=== PATIENT | male | born 1940 | race Caucasian/White ===

== ENCOUNTER 2017-01-04 08:43 | Inpatient (IN) ==
[2017-01-04] MEDS ORDERED: Acetaminophen 325 MG TABLET PO PRN (10:57)
[2017-01-04] MEDS ORDERED: Naloxone 0.4 MG/ML INJ IVP PRN (10:57)
--- NOTE | 2017-01-04 11:19 | Internal Med History&Physical ---
<Kiana Holder M - Last Filed: 01/04/17 11:30> Date of Encounter: 01/04/17 Time of Encounter: 11:07 Assessment and Plan (1) Atrial fibrillation with RVR Current visit: Yes Status: Acute Patient had episode of afib with RVR while at the [facility]. They started him on cardizem drip and transferred to [place]. On arrival, patient's heart rate was well controlled on 2.5 of cardizem drip. start 30mg Cardizem PO TID Stop Cardizem drip 1 hour after first dose of PO cardizem Continue home dose of metoprolol 25mg BID Continue Eliquis for anticoagulation. Continuous cardiac specialist. echocardiogram. 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 He reports his vertigo became significantly worse after taking meclizine earlier this week, which is what prompted his evaluation and stay at the [facility]. He is now back to his baseline per his report. Avoid Meclizine. Continue statin, aspirin. (4) Anticoagulated Current visit: Yes Status: Chronic Patient takes Eliquis for atrial fibrillation. No signs or symptoms of bleeding. Continue home dose of eliquis. (5) Hypertension Current visit: Yes Status: Chronic Blood pressure controlled since arrival. Continue home dose of losartan. Qualifiers: Hypertension type: essential hypertension Qualified Code(s): I10 - Essential (primary) hypertension (6) DVT prophylaxis Current visit: Yes Status: Acute anti-embolic stockings Patient on eliquis for afib, additional pharmacologic prophylaxis is not indicated. Internal Medicine - H&P: HPI Chief complaint: afib Admitted From: Emergency Dept Plans for Post Hospital Care: Home History of present illness: Mr. Hernandez is a 76 year old male with recent acute CVA (November) with residual vertigo, recently diagnosed afib, hypertension, BPH who was transferred from the [place] for afib with RVR. Patient reports he had been in the [place] hospital since Friday for an episode of worsening vertigo after taking meclizine. He states today, he was up in the bathroom, when someone came in and told him his HR was in the 140s and he would be going to [place]. He reports he does have occasional palpitations and shortness of breath, but nothing out of the ordinary from his baseline. He denies any chest pain, swelling, fevers, chills, nausea, vomiting , abdominal pain, diarrhea. [facility] and were grossly normal. TSH was checked during his stay and was within normal limits. On exam, patient alert and oriented, in no acute distress. Heart had irreglar rhythm with rate in the 70s-80s on 2.5 Cardizem drip. Lungs were clear bilaterally to auscultation. No peripheral edema. Past Med Surg Social Fam HX - Past Medical History Medical history: atrial fibrillation, CVA, hyperlipidemia, hypertension, other Psychiatric history: no psych history - Past Surgical History Surgical History: no surgical history - Social History Smoking Status: Former smoker Smokeless Tobacco Status: No Alcohol use: none Drug use: none - Family History Mother History Unknown: Yes Adopted: No Living Status: Internal Medicine - H&P: Meds Alfuzosin HCl [Uroxatral] 10 mg PO HS #0 12/05/16 [History] Apixaban [Eliquis] 5 mg PO BID 12/05/16 [History] Finasteride [Proscar] 5 mg PO DAILY 12/05/16 [History] Metoprolol [Lopressor] 25 mg PO BID 12/05/16 [History] Omeprazole [PriLOSEC] 20 mg PO BIDAC 12/05/16 [History] Psyllium [Metamucil Fiber Singles Packet] 1 packet PO HS 12/05/16 [History] Acetaminophen [Tylenol] 650 mg PO Q6HR PRN tab 12/13/16 [Rx] Atorvastatin [Lipitor] 40 mg PO HS #30 tab 12/13/16 [Rx] Losartan Potassium [Cozaar] 50 mg PO BID #30 tab 12/13/16 [Rx] amLODIPine [Norvasc] 5 mg PO DAILY #30 tablet 12/13/16 [Rx] 3 Allergy/AdvReac Type Severity Reaction Status Date / Time No Known Allergies Allergy Verified 12/05/16 16:42 All Systems PM: A 10-system review of systems was performed and is negative for pertinent findings except as documented above in the HPI. - Constitutional Constitutional: no chills, no fever(s), no night sweats - EENT Eyes: no change in vision, no discharge, no pain, no photophobia Ears: no ear discharge, no ear pain, no tinnitus Nose, mouth and throat: no dysphagia, no nasal discharge, no neck pain, no sore throat - Cardiovascular Cardiovascular ROS IM: dyspnea on exertion (occasional), palpitations ( occasional), no chest pain, no diaphoresis, no dyspnea, no lightheadedness, no syncope - Respiratory Respiratory: dyspnea on exertion, no cough, no dyspnea, no wheezing, no excessive phlegm production - Gastrointestinal Gastrointestinal: no abdominal pain, no diarrhea, no hematemesis, no hematochezia, no melena, no nausea, no vomiting - Musculoskeletal Musculoskeletal ROS IM: no numbness, no tingling - Integumentary Integumentary IM: no rash, no unusual bruising - Neurological Neurological ROS: dizziness (residual from CVA), no confusion, no convulsions, no focal weakness, no numbness, no tingling, no tremor(s) - Hematologic/Lymphatic Hematologic/Lymphatic: no easy bruising - Constitutional Vitals: Temp Pulse Resp BP Pulse Ox 97.6 F 80 16 133/94 99 01/04/17 09:54 01/04/17 09:54 01/04/17 09:54 01/04/17 09:54 01/04/17 09:54 General appearance: Present: A&O X 3, pleasant, no acute distress - Head Head exam: Present: atraumatic, normocephalic - Eye Eye exam: Present: PERRL, conjuntiva pink, sclera anicteric Pupils: Present: PERRL - Neck Neck exam general surgery: Present: supple, trachea midline. Absent: lymphadenopathy - Respiratory Respiratory exam: Present: CTAB. Absent: accessory muscle use, rales, rhonchi, wheezes - Cardiovascular Cardiovascular exam: Present: irregular rhythm, +S1, +S2. Absent: diastolic murmur, gallop, rubs, systolic murmur - GI/Abdominal GI/Abdominal exam: Present: normal bowel sounds, soft, no peritoneal signs. Absent: distended, tenderness - Extremities Exam Extremities exam: Present: warm, radial pulses palpable and symmetrical. Absent : calf tenderness, cyanotic, pedal edema - Neurological Exam Neurological exam: Present: CN II-XII intact, oriented X3, no focal deficits. Absent: facial droop, speech deficit - Skin Skin exam: Present: dry, intact Internal Med - H&P Results - Labs CBC & Chem 7: 01/04/17 11:13 Labs: Labs from [place] hospital: 12/30/16: Hgb 16.9 Hct 49.6 WBC 8.5 Plt 212 01/02/17: Na 143 K 3.8 Cl 108 CO2 27 BUN 8 Cr 0.87 GLU 72 <Annabelle Malloy - Last Filed: 01/04/17 13:27> Date of Encounter: 01/04/17 Time of Encounter: 10:30 Internal Medicine - H&P: HPI History of present illness: Mr. Hernandez is a 76 year old male All Systems PM: A 10-system review of systems was performed and is negative for pertinent findings except as documented above in the HPI. - Constitutional Vitals: Temp Pulse Resp BP Pulse Ox 97.6 F 80 16 133/94 99 01/04/17 09:54 01/04/17 09:54 01/04/17 09:54 01/04/17 09:54 01/04/17 09:54 Internal Med - H&P Results - Labs CBC & Chem 7: 01/04/17 11:13 01/04/17 11:13 Labs: Short CBC 01/04/17 Range/Units 11:13 WBC 9.5 (4.3-11.1) K/mcL Hgb 15.6 (12.9-16.9) g/dL Hct 45.7 (37.5-50.1) % Plt Count 187 (140-400) K/mcL Neutrophils # 7.4 (1.6-8.9) K/mcL BMP 01/04/17 11:13 Sodium 138 Potassium 4.1 Chloride 106 Carbon Dioxide 24 BUN 9 Creatinine 0.97 Glucose 103 H Calcium 9.1 - Attending Attestation Pt independently seen and examined. Transferred from [facility] for Afib with RVR, was started on cardizem gtt prior to transfer. Upon evaluation, he was noted to have rate controlled and was started on Cardizem 30mg PO q8h and is to be titrated off the drip. Pt is to continue home dose of Eliquis. Case discussed with CORIE Holder, I agree with her documented findings, assessment, and plan.
[2017-01-04 11:21] LABS: Basophils % 0.1 %; Eosinophils # 0.1 K/mcL (0.0-0.6); Eosinophils % 1.2 %; Hematocrit 45.7 % (37.5-50.1); Hemoglobin 15.6 g/dL (12.9-16.9); Immature Granulocytes % 0.3 % (0-4); Lymphocytes # 1.3 K/mcL (0.6-4.6); Lymphocytes % 14.1 %; Mean Corpuscular HGB Conc 34.1 g/dL (31.6-35.5); Mean Corpuscular Hemoglobin 28.4 pg (28.0-33.3); Mean Corpuscular Volume 83.2 fL (83.0-100.0); Monocytes # 0.6 K/mcL (0.0-1.3); Monocytes % 6.6 %; Neutrophils # 7.4 K/mcL (1.6-8.9); Platelet Count 187 K/mcL (140-400); Red Blood Count 5.49 M/mcL (4.19-5.50); Red Cell Distribution Width 14.6 % (11.5-14.5); Segmented Neutrophils % 77.7 %
[2017-01-04 11:33] LABS: BUN/Creatinine Ratio 9 (6-26); Blood Urea Nitrogen 9 mg/dL (8-26); Calcium 9.1 mg/dL (8.6-10.8); Carbon Dioxide 24 mEq/L (19-29); Chloride 106 mEq/L (98-109); Glucose 103 mg/dL (70-99); Osmolality,Calculated 285 (280-300); Potassium 4.1 mEq/L (3.5-4.5); Sodium 138 mEq/L (136-145); eGFR For African Americans > 60 (> 60); eGFR For Non-African Americans > 60 (> 60)
[2017-01-04] MEDS: APIXABAN 5 MG TABLET PO SCH (21:46)
[2017-01-04] MEDS: Psyllium 1 PACKET POWD.PACK PO SCH (21:48)
[2017-01-05 05:31] LABS: Basophils % 0.1 %; Eosinophils # 0.2 K/mcL (0.0-0.6); Eosinophils % 3.3 %; Hematocrit 43.9 % (37.5-50.1); Immature Granulocytes % 0.3 % (0-4); Lymphocytes # 1.9 K/mcL (0.6-4.6); Lymphocytes % 26.7 %; Mean Corpuscular HGB Conc 34.2 g/dL (31.6-35.5); Mean Corpuscular Hemoglobin 28.7 pg (28.0-33.3); Mean Corpuscular Volume 84.1 fL (83.0-100.0); Mean Platelet Volume 10.5 fL (9.4-12.4); Monocytes # 0.7 K/mcL (0.0-1.3); Monocytes % 9.5 %; Neutrophils # 4.3 K/mcL (1.6-8.9); Platelet Count 190 K/mcL (140-400); Red Blood Count 5.22 M/mcL (4.19-5.50); Red Cell Distribution Width 14.7 % (11.5-14.5); Segmented Neutrophils % 60.1 %
[2017-01-05 05:43] LABS: BUN/Creatinine Ratio 10 (6-26); Blood Urea Nitrogen 11 mg/dL (8-26); Calcium 8.9 mg/dL (8.6-10.8); Carbon Dioxide 27 mEq/L (19-29); Chloride 106 mEq/L (98-109); Glucose 96 mg/dL (70-99); Osmolality,Calculated 291 (280-300); Potassium 3.6 mEq/L (3.5-4.5); Sodium 141 mEq/L (136-145); eGFR For African Americans > 60 (> 60); eGFR For Non-African Americans > 60 (> 60)
[2017-01-05] MEDS ORDERED: Diltiazem CD (24hr) 120 MG CAPSULE PO SCH (09:00)
--- NOTE | 2017-01-05 09:04 | Internal Med Progress Note ---
<Pravin Huerta - Last Filed: 01/05/17 11:25> Date of Encounter: 01/05/17 Time of Encounter: 09:02 - Assessment and plan (1) Atrial fibrillation Current Visit: No Status: Acute Assessment and plan: Patient was transferred with a heart rate in the 130s. He reported symptoms of dizziness. Denied chest pains or palpitations. Patient was started on Cardizem drip and is very responded appropriately. Patient has been transitioned to by mouth Cardizem. Patient was on short acting Cardizem 30 mg every 8 hours, have transitioned to long-acting Cardizem 120 mg daily.Continue to monitor patient's heart rate and blood pressure on the Cardizem. Spoke with nursing staff and patient have encouraged patient to get out of bed and move around with assistance to evaluate his heart rate on exertion. 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 Patient reports that he was given meclizine and this made his dizziness significantly worse. Continue to avoid meclizine. PT/OT consult. (3) Urinary retention Current Visit: No Status: Chronic Assessment and plan: Chronic. Patient's self catheterizes at home. (4) Hypertension Current Visit: Yes Status: Chronic Assessment and plan: Stable. Continue to monitor for hypotension starting Cardizem 120 mg daily. Qualifiers: Hypertension type: essential hypertension Qualified Code(s): I10 - Essential (primary) hypertension - Subjective Interval history: Patient seen and examined at bedside. Patient has no complaints at this time. He denies any chest pain, shortness of breath, palpitations, dizziness or syncope. He feels like he is back to baseline. He states he was told recently that he should limit his activity out of bed sitting up and out of bed since arrival. - Constitutional Vitals: Temp Pulse Resp BP Pulse Ox 98.1 F 91 18 139/80 92 01/05/17 07:27 01/05/17 07:27 01/05/17 07:27 01/05/17 07:27 01/05/17 07:27 General appearance: Present: A&O X 3, pleasant, no acute distress - Respiratory Respiratory exam: Present: CTAB. Absent: rales, rhonchi, wheezes - Cardiovascular Cardiovascular exam: Present: irregular rhythm. Absent: gallop, rubs, systolic murmur, tachycardia - GI/Abdominal GI/Abdominal exam: Present: normal bowel sounds, soft. Absent: distended, tenderness - Extremities Exam Extremities exam: Present: warm. Absent: pedal edema, tenderness - Neurological Exam Neurological exam: Present: alert, CN II-XII intact, oriented X3, no focal deficits Internal Medicine: Result - Labs CBC & Chem 7: 01/05/17 04:51 01/05/17 04:51 Labs: Short CBC 01/04/17 01/05/17 Range/Units 11:13 04:51 WBC 9.5 7.2 (4.3-11.1) K/mcL Hgb 15.6 15.0 (12.9-16.9) g/dL Hct 45.7 43.9 (37.5-50.1) % Plt Count 187 190 (140-400) K/mcL Neutrophils # 7.4 4.3 (1.6-8.9) K/mcL BMP 01/04/17 01/05/17 11:13 04:51 Sodium 138 141 Potassium 4.1 3.6 Chloride 106 106 Carbon Dioxide 24 27 BUN 9 11 Creatinine 0.97 1.09 Glucose 103 H 96 Calcium 9.1 8.9 Consult Discharge Plan - Plan [facility]errals: [facility]Primary Care Provider[facility] - <Jamie Green P - Last Filed: 01/05/17 17:15> Date of Encounter: 01/05/17 - Constitutional Vitals: Temp Pulse Resp BP Pulse Ox 97.5 F L 67 18 103/69 94 01/05/17 15:58 01/05/17 15:58 01/05/17 15:58 01/05/17 15:58 01/05/17 15:58 Internal Medicine: Result - Labs CBC & Chem 7: 01/05/17 04:51 01/05/17 04:51 Labs: Short CBC 01/05/17 Range/Units 04:51 WBC 7.2 (4.3-11.1) K/mcL Hgb 15.0 (12.9-16.9) g/dL Hct 43.9 (37.5-50.1) % Plt Count 190 (140-400) K/mcL Neutrophils # 4.3 (1.6-8.9) K/mcL BMP 01/05/17 04:51 Sodium 141 Potassium 3.6 Chloride 106 Carbon Dioxide 27 BUN 11 Creatinine 1.09 Glucose 96 Calcium 8.9 - Attending Attestation I examined this patient and my medical decision-making was reviewed with the Resident Physician. I agree with the documented findings, disposition and treatment plan as described except to the extent set forth below.
[2017-01-05] MEDS: Finasteride 5 MG TABLET PO SCH (09:05)
[2017-01-05] MEDS: APIXABAN 5 MG TABLET PO SCH ×2 (09:06→21:09)
[2017-01-05] MEDS: amLODIPine 5 MG TABLET PO SCH (09:06)
[2017-01-05] MEDS: Psyllium 1 PACKET POWD.PACK PO SCH (21:10)
[2017-01-06 05:22] LABS: Basophils % 0.1 %; Eosinophils # 0.2 K/mcL (0.0-0.6); Eosinophils % 2.7 %; Hemoglobin 15.4 g/dL (12.9-16.9); Immature Granulocytes % 0.5 % (0-4); Lymphocytes # 2.1 K/mcL (0.6-4.6); Mean Corpuscular HGB Conc 32.8 g/dL (31.6-35.5); Mean Corpuscular Hemoglobin 27.7 pg (28.0-33.3); Mean Corpuscular Volume 84.7 fL (83.0-100.0); Mean Platelet Volume 10.3 fL (9.4-12.4); Monocytes # 0.9 K/mcL (0.0-1.3); Monocytes % 10.3 %; Neutrophils # 5.5 K/mcL (1.6-8.9); Platelet Count 197 K/mcL (140-400); Red Blood Count 5.55 M/mcL (4.19-5.50); Red Cell Distribution Width 14.6 % (11.5-14.5); Segmented Neutrophils % 62.4 %
[2017-01-06 05:38] LABS: BUN/Creatinine Ratio 11 (6-26); Blood Urea Nitrogen 12 mg/dL (8-26); Carbon Dioxide 28 mEq/L (19-29); Chloride 107 mEq/L (98-109); Glucose 89 mg/dL (70-99); Magnesium 1.7 mg/dL (1.6-2.6); Osmolality,Calculated 293 (280-300); Sodium 142 mEq/L (136-145); eGFR For African Americans > 60 (> 60); eGFR For Non-African Americans > 60 (> 60)
[2017-01-06] MEDS: amLODIPine 5 MG TABLET PO SCH (08:27)
[2017-01-06] MEDS: APIXABAN 5 MG TABLET PO SCH ×2 (08:27→20:05)
[2017-01-06] MEDS: Finasteride 5 MG TABLET PO SCH (08:27)
[2017-01-06] MEDS ORDERED: Diltiazem CD (24hr) 180 MG CAPSULE PO SCH (09:00)
--- NOTE | 2017-01-06 13:39 | Internal Med Progress Note ---
<Pravin Huerta - Last Filed: 01/06/17 13:37> Date of Encounter: 01/06/17 Time of Encounter: 13:37 - Assessment and plan (1) Atrial fibrillation Current Visit: No Status: Acute Assessment and plan: Patient was transferred with a heart rate in the 130s. He reported symptoms of dizziness. Denied chest pains or palpitations. Patient was started on Cardizem drip and is very responded appropriately. Patient has been transitioned to by mouth Cardizem. Patient was on short acting Cardizem 30 mg every 8 hours, have transitioned to long-acting Cardizem 120 mg daily yesterday. Patient unfortunately had significant tachycardia when he got up and went to the bathroom. His Cardizem dose was increased to 180 mg today and again he had some tachycardia with activity. Will further titrate up his Cardizem for rate control as blood pressure allows. 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 Patient reports that he was given meclizine and this made his dizziness significantly worse. Continue to avoid meclizine. PT/OT consult. (3) Urinary retention Current Visit: No Status: Chronic Assessment and plan: Chronic. Patient's self catheterizes at home. (4) Hypertension Current Visit: Yes Status: Chronic Assessment and plan: Stable. Continue to monitor for hypotension while titrating up Cardizem to 180 mg daily. Qualifiers: Hypertension type: essential hypertension Qualified Code(s): I10 - Essential (primary) hypertension - Subjective Interval history: Patient seen and examined at bedside. Patient has no complaints at this time. He denies any chest pain, shortness of breath, palpitations, dizziness or syncope. He feels like he is back to baseline. - Constitutional Vitals: Temp Pulse Resp BP Pulse Ox 97.7 F 67 16 95/63 96 01/06/17 10:52 01/06/17 10:52 01/06/17 10:52 01/06/17 10:52 01/06/17 10:52 General appearance: Present: A&O X 3, pleasant, no acute distress - Respiratory Respiratory exam: Present: CTAB. Absent: rales, rhonchi, wheezes - Cardiovascular Cardiovascular exam: Absent: gallop, irregular rhythm, rubs, systolic murmur, tachycardia - GI/Abdominal GI/Abdominal exam: Present: normal bowel sounds, soft. Absent: distended, tenderness - Extremities Exam Extremities exam: Present: warm. Absent: pedal edema, tenderness - Neurological Exam Neurological exam: Present: alert, CN II-XII intact, oriented X3, no focal deficits Internal Medicine: Result - Labs CBC & Chem 7: 01/06/17 04:31 01/06/17 04:31 Labs: Short CBC 01/06/17 Range/Units 04:31 WBC 8.8 (4.3-11.1) K/mcL Hgb 15.4 (12.9-16.9) g/dL Hct 47.0 (37.5-50.1) % Plt Count 197 (140-400) K/mcL Neutrophils # 5.5 (1.6-8.9) K/mcL BMP 01/06/17 04:31 Sodium 142 Potassium 4.0 Chloride 107 Carbon Dioxide 28 BUN 12 Creatinine 1.08 Glucose 89 Calcium 9.0 Consult Discharge Plan - Plan [facility]errals: [facility]Primary Care Provider[facility] - <Jamie Green P - Last Filed: 01/06/17 18:21> Date of Encounter: 01/06/17 - Constitutional Vitals: Temp Pulse Resp BP Pulse Ox 97.7 F 74 18 103/75 97 01/06/17 15:41 01/06/17 15:41 01/06/17 15:41 01/06/17 15:41 01/06/17 15:41 Internal Medicine: Result - Labs CBC & Chem 7: 01/06/17 04:31 01/06/17 04:31 Labs: Short CBC 01/06/17 Range/Units 04:31 WBC 8.8 (4.3-11.1) K/mcL Hgb 15.4 (12.9-16.9) g/dL Hct 47.0 (37.5-50.1) % Plt Count 197 (140-400) K/mcL Neutrophils # 5.5 (1.6-8.9) K/mcL BMP 01/06/17 04:31 Sodium 142 Potassium 4.0 Chloride 107 Carbon Dioxide 28 BUN 12 Creatinine 1.08 Glucose 89 Calcium 9.0 - Attending Attestation I examined this patient and my medical decision-making was reviewed with the Resident Physician. I agree with the documented findings, disposition and treatment plan as described except to the extent set forth below.
--- NOTE | 2017-01-06 17:09 | Electrocardiograph Report ---
[place] [address] Test Date: 2017-01-05 Pat Name: Dalia Hernandez Department: 112 Room: 2A25 Gender: M [employer] Developer: : 1940 Requested By: Jamie Green Order Number: [id number] Reading MD: Florinda Lambert Measurements Intervals Jean Rate: 118 P: AL: 0 QRS: -16 QRSD: 94 T: 96 QT: 316 QTc: 386 Interpretive Statements ATRIAL FIBRILLATION WITH RAPID VENTRICULAR RESPONSE NONSPECIFIC ST & T-WAVE ABNORMALITY Electronically Signed On 01-06-2017 17:07:50 EDT by Florinda Lambert
--- NOTE | 2017-01-06 17:24 | Electrocardiograph Report ---
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
[2017-01-06] MEDS: Psyllium 1 PACKET POWD.PACK PO SCH (20:07)
[2017-01-07 03:57] LABS: Basophils % 0.1 %; Eosinophils # 0.3 K/mcL (0.0-0.6); Hematocrit 45.8 % (37.5-50.1); Hemoglobin 15.1 g/dL (12.9-16.9); Immature Granulocytes % 0.5 % (0-4); Lymphocytes # 2.1 K/mcL (0.6-4.6); Lymphocytes % 23.4 %; Mean Corpuscular Hemoglobin 27.7 pg (28.0-33.3); Mean Corpuscular Volume 83.9 fL (83.0-100.0); Mean Platelet Volume 10.2 fL (9.4-12.4); Monocytes # 0.9 K/mcL (0.0-1.3); Monocytes % 9.7 %; Neutrophils # 5.6 K/mcL (1.6-8.9); Platelet Count 197 K/mcL (140-400); Red Blood Count 5.46 M/mcL (4.19-5.50); Red Cell Distribution Width 14.7 % (11.5-14.5); Segmented Neutrophils % 63.3 %
[2017-01-07 04:15] LABS: BUN/Creatinine Ratio 13 (6-26); Blood Urea Nitrogen 11 mg/dL (8-26); Calcium 8.9 mg/dL (8.6-10.8); Carbon Dioxide 25 mEq/L (19-29); Chloride 109 mEq/L (98-109); Glucose 85 mg/dL (70-99); Magnesium 1.8 mg/dL (1.6-2.6); Osmolality,Calculated 289 (280-300); Potassium 3.8 mEq/L (3.5-4.5); Sodium 140 mEq/L (136-145); eGFR For African Americans > 60 (> 60); eGFR For Non-African Americans > 60 (> 60)
[2017-01-07] MEDS ORDERED: Diltiazem CD (24hr) 240 MG CAPSULE PO SCH (09:00)
[2017-01-07] MEDS: APIXABAN 5 MG TABLET PO SCH (09:03)
[2017-01-07] MEDS: Finasteride 5 MG TABLET PO SCH (09:04)
[2017-01-07 10:58] VITALS: BP 119/81
--- NOTE | 2017-01-07 11:18 | Internal Med Progress Note ---
<Pravin Huerta - Last Filed: 01/07/17 11:16> Date of Encounter: 01/07/17 Time of Encounter: 11:16 - Assessment and plan (1) Atrial fibrillation Status: Acute Assessment and plan: Patient was transferred with a heart rate in the 130s. He reported symptoms of dizziness. Denied chest pains or palpitations. Patient was started on Cardizem drip and is very responded appropriately. Patient has been transitioned to by mouth Cardizem. Patient was on short acting Cardizem 30 mg every 8 hours, have transitioned to long-acting Cardizem 120 mg daily Friday. Patient unfortunately had significant tachycardia when he got up and went to the bathroom. His Cardizem dose was increased to 180 mg yesterdayand again he had some tachycardia with activity. Increased to 240mg today and rate was controlled but now he is having some 2 to 3 second pauses. 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 Patient reports that he was given meclizine and this made his dizziness significantly worse. Continue to avoid meclizine. PT/OT consult. (3) Urinary retention Status: Chronic Assessment and plan: Chronic. Patient's self catheterizes at home. (4) Hypertension Status: Chronic Assessment and plan: Stable. Given that we are increasing his cardizem will d/c norvasc and decrease losartan to 25mg daily Qualifiers: Hypertension type: essential hypertension Qualified Code(s): I10 - Essential (primary) hypertension - Subjective Interval history: Patient seen and examined at bedside. Patient has no complaints at this time. He denies any chest pain, shortness of breath, palpitations, dizziness or syncope. He feels like he is back to baseline. - Constitutional Vitals: Temp Pulse Resp BP Pulse Ox 98.3 F 78 20 119/81 94 01/07/17 10:56 01/07/17 10:56 01/07/17 10:56 01/07/17 10:56 01/07/17 10:56 General appearance: Present: A&O X 3, pleasant, no acute distress - Respiratory Respiratory exam: Present: CTAB. Absent: rales, rhonchi, wheezes - Cardiovascular Cardiovascular exam: Present: irregular rhythm. Absent: gallop, rubs, systolic murmur, tachycardia - GI/Abdominal GI/Abdominal exam: Present: normal bowel sounds, soft. Absent: distended, tenderness - Extremities Exam Extremities exam: Present: warm. Absent: pedal edema, tenderness - Neurological Exam Neurological exam: Present: alert, CN II-XII intact, oriented X3, no focal deficits Internal Medicine: Result - Labs CBC & Chem 7: 01/07/17 03:40 01/07/17 03:40 Labs: Short CBC 01/07/17 Range/Units 03:40 WBC 8.8 (4.3-11.1) K/mcL Hgb 15.1 (12.9-16.9) g/dL Hct 45.8 (37.5-50.1) % Plt Count 197 (140-400) K/mcL Neutrophils # 5.6 (1.6-8.9) K/mcL BMP 01/07/17 03:40 Sodium 140 Potassium 3.8 Chloride 109 Carbon Dioxide 25 BUN 11 Creatinine 0.88 Glucose 85 Calcium 8.9 Consult Discharge Plan - Plan Instructions: Atrial Fibrillation (DC) Additional Instructions: Please follow-up with your primary care physician in one week. 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 Please start taking Cardizem 240 mg daily. Please stop taking Norvasc. Please decrease your losartan to 25 mg daily. Please resume your other home medications. Please return for any new or worsening symptoms. 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 Status: Chronic (3) Hypertension Status: Chronic Qualifiers: Hypertension type: essential hypertension Qualified Code(s): I10 - Essential (primary) hypertension - Constitutional Vitals: Temp Pulse Resp BP Pulse Ox 98.3 F 78 20 119/81 94 01/07/17 10:56 01/07/17 10:56 01/07/17 10:56 01/07/17 10:56 01/07/17 10:56 Internal Medicine: Result - Labs CBC & Chem 7: 01/07/17 03:40 01/07/17 03:40 Labs: Short CBC 01/07/17 Range/Units 03:40 WBC 8.8 (4.3-11.1) K/mcL Hgb 15.1 (12.9-16.9) g/dL Hct 45.8 (37.5-50.1) % Plt Count 197 (140-400) K/mcL Neutrophils # 5.6 (1.6-8.9) K/mcL BMP 01/07/17 03:40 Sodium 140 Potassium 3.8 Chloride 109 Carbon Dioxide 25 BUN 11 Creatinine 0.88 Glucose 85 Calcium 8.9 - Attending Attestation Please see discharge summary of this date.
--- NOTE | 2017-01-07 13:55 | Cardiology Consult Note ---
Date of Encounter: 01/07/17 Time of Encounter: 13:52 Assessment and Plan (1) Atrial fibrillation Current Visit: Yes Status: Chronic Presented in A-Fib RVR, rate 110s. Known A-Fib recently diagnosed, recent CVA and now anticoagulated on Eliquis 5mg BID. On Lopressor 25mg BID. Started on IV Cardizem gtt at 2.5mg/hr on admission and quickly rate controlled and transitioned to PO Cardizem. Pt was still having RVR when he would get up to use the restroom, so Cardizem CD was uptitrated to 240mg daily and adequate rate control was achieved. Cardiology consulted for pauses up to 2.8 seconds long, mostly nocturnal. Lowest HR 37 during nocturnal hours. HR 60s-80s during daytime hours. Discussed and reviewed with Dr. Elliott. 2.8 second pauses are not significant while in A-Fib. His bradycardia seems to only be during nocturnal hours. No PPM is warranted at this time. Would recommend follow-up with cardiology as outpt. Pt reports he is scheduled to see a ground control approach technician in [place] in 2 weeks. TSH within normal range. K 3.8, Mag 1.8. Pt reports dizziness since his CVA that worsened after taking Meclizine. Pt denies syncope. Continue Cardizem CD 240mg daily, Lopressor 25mg BID, and Eliquis 5mg BID. Echo EF 50%, biatrial enlargement, asymmetric hypertrophy of basal septum without LVOT obstruction, dilated aortic root 4.6cm. Cardiology signing off. Reconsult PRN. Follow-up as outpt in [place] as planned. Qualifiers: Atrial fibrillation type: persistent Qualified Code(s): I48.1 - Persistent atrial fibrillation Discussion w patient/family: The assessment and plan as outlined above was discussed with the patient and/or family members who expressed understanding and agreement. All questions were answered. Thank you for involving us in the care of your patient. Please call with any questions. I will discuss all the above with Dr. Elliott and make changes as necessary. History of Present Illness Consult date: 01/07/17 Requesting physician: Pravin Huerta Consult reason: A-Fib, pauses Chief complaint: dizziness History of present illness: Mr. Hernandez is a 76 year old male with PMH of recent acute CVA (November) with residual vertigo, recently diagnosed afib anticoagulated on Eliquis, hypertension, BPH who was transferred [place] the [place] for afib with RVR. Patient reports he had been in the [place] hospital since Friday for an episode of worsening vertigo after taking meclizine. He states he got up to use the bathroom at the [place] and his HR increased to 130s and he was then transferred to [facility]. He reports he does have occasional palpitations and shortness of breath, but nothing out of the ordinary from his baseline. He denies any chest pain. He reports dizziness since his CVA that worsened after taking Meclizine. Denies syncope. Recent TSH was checked at [place] and was within normal limits. Pt was previously only on Lopressor 25mg BID for rate control. On presentation to [facility] he was started on Cardizem gtt 2.5mg/hr and rate control was achieved. He was transitioned to PO Cardizem and it was noted that he was rate controlled at rest , but would quickly become tachycardic. Cardizem was uptitrated to 240mg daily. Rate control has been achieved, but he was having pauses as long as 2.8 seconds so cardiology was consulted. 24 hr tele AVG HR 72, A-Fib, longest pause 2.8 seconds. Lowest HR 37 bpm during nocturnal hours. Echo during stay shows EF 50% , asymmetric hypertrophy of basal septum without LVOT obstruction, biatrial enlargement, dilated aortic root 4.6cm. Past Med Surg Social Fam HX - Past Medical History Medical history: atrial fibrillation, CVA, hyperlipidemia, hypertension, other Psychiatric history: no psych history - Past Surgical History Surgical History: no surgical history - Social History Smoking Status: Former smoker Smokeless Tobacco Status: No Alcohol use: none Drug use: none - Family History Mother History Unknown: Yes Adopted: No Living Status: Medications and Allergies Alfuzosin HCl [Uroxatral] 10 mg PO HS #0 12/05/16 [History] Apixaban [Eliquis] 5 mg PO BID 12/05/16 [History] Finasteride [Proscar] 5 mg PO DAILY 12/05/16 [History] Metoprolol [Lopressor] 25 mg PO BID 12/05/16 [History] Omeprazole [PriLOSEC] 20 mg PO BIDAC 12/05/16 [History] Psyllium [Metamucil Fiber Singles Packet] 1 packet PO HS 12/05/16 [History] Acetaminophen [Tylenol] 650 mg PO Q6HR PRN tab 12/13/16 [Rx] Atorvastatin [Lipitor] 40 mg PO HS #30 tab 12/13/16 [Rx] Losartan Potassium [Cozaar] 50 mg PO BID #30 tab 12/13/16 [Rx] amLODIPine [Norvasc] 5 mg PO DAILY #30 tablet 12/13/16 [Rx] 3 Allergy/AdvReac Type Severity Reaction Status Date / Time No Known Allergies Allergy Verified 12/05/16 16:42 All Systems Review: A 10-system review of systems was performed and is negative for pertinent findings except as documented above in the HPI. - Cardiovascular Cardiovascular: as per HPI, dyspnea on exertion, irregular heart rhythm, lightheadedness, palpitations - Neurological Neurological: dizziness Physical Examination Vital Signs, Last 4 Hours Temp Pulse Resp BP Pulse Ox 01/07/17 10:56 98.3 F 78 20 119/81 94 Vital Signs Temp Pulse Resp BP Pulse Ox 01/07/17 10:56 98.3 F 78 20 119/81 94 01/07/17 09:11 92 01/07/17 08:48 97.9 F 82 17 136/80 92 01/07/17 04:17 97.6 F 61 17 106/66 93 01/07/17 00:05 97.4 F L 74 18 101/69 94 01/06/17 20:12 95 01/06/17 19:17 97.4 F L 76 16 124/56 95 01/06/17 15:41 97.7 F 74 18 103/75 97 Intake and Output 01/06/17 01/07/17 01/07/17 23:59 07:59 15:59 Intake Total 360 / 360 Output Total 250 / 250 0 / 0 Balance -250 / -250 360 / 360 Intake: Oral 360 / 360 Output: Urine 0 / 0 Straight Cath 250 / 250 Other: Meal Breakfast Percent of Meal Consumed 100% # Bowel Movements 1 Weight 61 kg Patient Weight 01/07/17 23:59 Weight 61 kg General: Conversant, No Apparent Distress HEENT: Atraumatic, Normocephaly, Mucus Membranes Moist Neck: No JVD, Normal carotid pulses Cardiac: Other (irregularly irregular rhythm) Lungs: Normal Breath Sounds, No Wheeze, Rales, Rhonchi Neuro: Alert and responsive, No focal deficits noted Abdomen: Soft, Non-Tender Skin: No rashes noted on visualized skin Musculoskeletal: No Chest Wall Tenderness Extremities: No Clubbing, No Cyanosis, No Edema, Normal Pulses Results 01/07/17 03:40 01/07/17 03:40 Lab Results 01/07/17 01/07/17 03:40 03:40 WBC 8.8 Hgb 15.1 Hct 45.8 Plt Count 197 Sodium 140 Potassium 3.8 Chloride 109 Carbon Dioxide 25 BUN 11 Creatinine 0.88 Glucose 85 Calcium 8.9 Magnesium 1.8 Short CBC 01/07/17 Range/Units 03:40 WBC 8.8 (4.3-11.1) K/mcL Hgb 15.1 (12.9-16.9) g/dL Hct 45.8 (37.5-50.1) % Plt Count 197 (140-400) K/mcL Neutrophils # 5.6 (1.6-8.9) K/mcL BMP 01/07/17 Range/Units 03:40 Sodium 140 (136-145) mEq/L Potassium 3.8 (3.5-4.5) mEq/L Chloride 109 (98-109) mEq/L Carbon Dioxide 25 (19-29) mEq/L BUN 11 (8-26) mg/dL Creatinine 0.88 (0.72-1.25) mg/dL Glucose 85 (70-99) mg/dL Calcium 8.9 (8.6-10.8) mg/dL Active Medications Acetaminophen (Tylenol) 650 mg PO Q6HR PRN PRN Reason: Mild Pain (1-3) Stop: 07/06/17 10:58 Last Admin: 01/04/17 14:23 Dose: 650 mg Apixaban (Eliquis) 5 mg PO BID [facility] Stop: 07/06/17 21:01 Last Admin: 01/07/17 09:03 Dose: 5 mg Atorvastatin Calcium (Lipitor) 40 mg PO HS [facility] Stop: 07/06/17 21:01 Last Admin: 01/06/17 20:05 Dose: 40 mg Diltiazem HCl (Cardizem Cd) 240 mg PO DAILY [facility] Stop: 07/09/17 09:01 Last Admin: 01/07/17 09:03 Dose: 240 mg Docusate Sodium (Colace) 100 mg PO BID PRN PRN Reason: Constipation Stop: 07/06/17 10:58 Last Admin: 01/06/17 16:01 Dose: 100 mg Finasteride (Proscar) 5 mg PO DAILY JAYCEE PRN Reason: Protocol Stop: 07/07/17 09:01 Last Admin: 01/07/17 09:04 Dose: 5 mg Losartan Potassium (Cozaar) 25 mg PO DAILY JAYCEE PRN Reason: Protocol Stop: 07/09/17 09:01 Last Admin: 01/07/17 09:03 Dose: 25 mg Metoprolol Tartrate (Lopressor) 25 mg PO BID [facility] Stop: 07/06/17 21:01 Last Admin: 01/07/17 09:03 Dose: 25 mg Naloxone HCl (Narcan) 0.4 mg IVP Q2MIN PRN PRN Reason: Opioid Reversal Stop: 07/06/17 10:58 Omeprazole (Prilosec) 20 mg PO BIDAC JAYCEE PRN Reason: Protocol Stop: 07/06/17 16:31 Last Admin: 01/07/17 09:03 Dose: 20 mg Psyllium Hydrophilic Mucilloid (Metamucil Fiber Singles Packet) 1 packet PO HS [facility] Stop: 07/06/17 21:01 Last Admin: 01/06/17 20:07 Dose: 1 packet Tamsulosin HCl (Flomax) 0.4 mg PO HS [facility] Stop: 07/06/17 21:01 Last Admin: 01/06/17 20:05 Dose: 0.4 mg - Imaging and Cardiology Echo: report reviewed - EKG Interpretation EKG results cardiology: personally reviewed (A-Fib RVR rate 118), other (24 hr tele AVG HR 72, A-Fib, longest pause 2.8 seconds, lowest HR 37) Consult Discharge Plan - Plan [facility]errals: [facility] [Primary Care Provider] -
--- NOTE | 2017-01-07 14:24 | Discharge Summary ---
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 (3) Urinary retention Priority: Secondary Status: Chronic (4) Hypertension Priority: Secondary Status: Chronic Qualifiers: Hypertension type: essential hypertension Qualified Code(s): I10 - Essential (primary) hypertension - Discharge Medications Prescriptions: Diltiazem CD (24hr) [Cardizem CD] 240 mg PO DAILY #30 Losartan [Cozaar] 25 mg PO DAILY #30 tab Home Medications: Alfuzosin HCl [Uroxatral] 10 mg PO HS #0 12/05/16 [History] Apixaban [Eliquis] 5 mg PO BID 12/05/16 [History] Finasteride [Proscar] 5 mg PO DAILY 12/05/16 [History] Metoprolol [Lopressor] 25 mg PO BID 12/05/16 [History] Omeprazole [PriLOSEC] 20 mg PO BIDAC 12/05/16 [History] Psyllium [Metamucil Fiber Singles Packet] 1 packet PO HS 12/05/16 [History] Acetaminophen [Tylenol] 650 mg PO Q6HR PRN tab 12/13/16 [Rx] Atorvastatin [Lipitor] 40 mg PO HS #30 tab 12/13/16 [Rx] Diltiazem CD (24hr) [Cardizem CD] 240 mg PO DAILY #30 01/07/17 [Rx] Losartan [Cozaar] 25 mg PO DAILY #30 tab 01/07/17 [Rx] Allergies/Adverse Reactions: 3 Allergy/AdvReac Type Severity Reaction Status Date / Time No Known Allergies Allergy Verified 12/05/16 16:42 Procedures/tests Complete & Pending: Procedures Performed prior 72 hours Category Date Time Status ECG 12 lead ECG [ECG] Routine Y 01/05/17 09:45 Completed Date of admission: 01/04/17 09:33 [facility] care physician: [facility] Consults: 01/05/17 09:01 Consult to Occupational Therapy [CONS] Routine Comment: Evaluate, develop and implement POC Reason for Consult: dizziness/off balance Consult to Physical Therapy [CONS] Routine Comment: Evaluate, develop and implement POC Reason for Consult: dizziness/off balance 01/07/17 11:46 Consult to Cardiology [CONS] Routine Comment: Consulting Provider: Caroline Mendoza Reason for Consult: Rapid a fib - bradycardia with meds Time Notified: 12:00 Call Completed: Yes Discharging clinician: Pravin Huerta Anticipated date of discharge: 01/07/17 - Patient Status Disposition: Home, Self-Care Condition: Fair Functional capacity at discharge: independent ambulation Overall status at discharge: patient is progressing back to baseline - Discharge Instructions Instructions: Atrial Fibrillation (DC) Follow Up With: [place],PCP [Primary Care Provider] - 01/14/17 11:30 am (Please follow up as schedule...) Additional Instructions: Please follow-up with your primary care physician in one week. Please follow-up with your freight checker as scheduled. Please start taking Cardizem 240 mg daily. Please stop taking Norvasc. Please decrease your losartan to 25 mg daily. Please resume your other home medications. Please return for any new or worsening symptoms. - Diet and Activity Activity: increase activity as tolerated Diet: low salt diet Interval History: Patient seen and examined at bedside. Patient has no complaints at this time. He denies shortness of breath, chest pain, headache, dizziness, palpitations. He was able to get up and walk around without difficulty. Hospital course: Mr. Hernandez is a 76 year old male with history of atrial fibrillation who presented from the [place] with A. fib with RVR. Patient has chronic A. fib and is on Eliquis for anticoagulation. Patient's rate upon arrival was in the 130s. Patient was placed on Cardizem drip and the Cardizem drip at 2.5 mg/h his rate was controlled. Patient was transitioned to by mouth Cardizem. Patient's heart rate was under good control rest however during his stay when he got up and walked around including going to the bathroom his heart rate would rise significantly into the 180s or 190s. His Cardizem was tapered up and other blood pressure medications including Norvasc which was discontinued and losartan was decreased to 25 mg daily. On the day of discharge the patient's heart rate was under good control both at rest and activity. He was noted to have occasional pauses from 2-3 seconds. Cardiology was consulted further recommendations and they felt his pauses were nonsignificant given his A. fib and his lack of symptomatology. Therefore the patient will be discharged home in stable condition. The patient has a follow-up with an outside freight checker in 2 weeks. - Time Spent with Patient Total time spent providing and/or coordinating discharge services: Less than 30 minutes - Constitutional Vitals: Temp Pulse Resp BP Pulse Ox 98.3 F 78 20 119/81 94 01/07/17 10:56 01/07/17 10:56 01/07/17 10:56 01/07/17 10:56 01/07/17 10:56 General appearance: Present: A&O X 3, pleasant, no acute distress - Respiratory Respiratory exam: Present: CTAB. Absent: rales, rhonchi, wheezes - Cardiovascular Cardiovascular exam: Present: irregular rhythm. Absent: gallop, rubs, systolic murmur, tachycardia - GI/Abdominal GI/Abdominal exam: Present: normal bowel sounds, soft. Absent: distended, tenderness - Extremities Exam Extremities exam: Present: warm. 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 (3) Hypertension Status: Chronic Qualifiers: Hypertension type: essential hypertension Qualified Code(s): I10 - Essential (primary) hypertension Procedures/tests Complete & Pending: Procedures Performed prior 72 hours Category Date Time Status ECG 12 lead ECG [ECG] Routine Y 01/05/17 09:45 Completed Date of admission: 01/04/17 09:33 [facility] care physician: [facility] Consults: 01/05/17 09:01 Consult to Occupational Therapy [CONS] Routine Comment: Evaluate, develop and implement POC Reason for Consult: dizziness/off balance Consult to Physical Therapy [CONS] Routine Comment: Evaluate, develop and implement POC Reason for Consult: dizziness/off balance 01/07/17 11:46 Consult to Cardiology [CONS] Routine Comment: Consulting Provider: Cardiology Kelly Reason for Consult: Rapid a fib - bradycardia with meds Time Notified: 12:00 Call Completed: Yes Hospital course: Mr. Hernandez is a 76 year old male - Time Spent with Patient Total time spent providing and/or coordinating discharge services: My discharge time is 37min - Constitutional Vitals: Temp Pulse Resp BP Pulse Ox 98.3 F 78 20 119/81 94 01/07/17 10:56 01/07/17 10:56 01/07/17 10:56 01/07/17 10:56 01/07/17 10:56 - Attending Attestation I examined this patient and my medical decision-making was reviewed with the Resident Physician on 01/07/17. I agree with the documented findings, disposition and treatment plan as described except to the extent set forth below. Mr. Hernandez feels OK. His heart rate is better controlled on meds. Eval by cardiology today and appreciated. Ready to go home. Exam Alert. Comfortable. Heart irreg - not tachy Lungs clear Abd soft Plan D/C home today on current meds.
== END 2017-01-07 17:03 | disposition home or self-care (01) | DRG 310 ==
LOC: SUATTDRO 09:33 → 2ANU 09:33
PROVIDERS: ADMIT Internal Medicine; ATTEND Internal Medicine